=== PATIENT | female | born 1945 | race Caucasian/White ===

== ENCOUNTER 2017-03-17 10:29 | Emergency (ER) | payer MEDICARE, BC ==
--- NOTE | 2017-03-17 12:31 | ED PDOC ---
HPI: Trauma/Fall - HPI Time Seen by Provider: 03/17/17 11:08 Chief Complaint (Nursing): Lower Extremity Problem/Injury Chief Complaint (Provider): Fall, head injury History Per: Patient History/Exam Limitations: no limitations Onset/Duration Of Symptoms: Mins Injury Occurred (Timing): Just Before Arrival Associated Symptoms: Dizziness. denies: LOC Additional Complaint(s): 71yo female, past medical history of diabetes and hypertension, not currently on blood thinners, presents to ED for evaluation after she sustained a mechanical fall and had a head injury. Patient states she was walking on uneven pavement, fell and injured her forehead, left shoulder and knee. Patient states she was dizzy after the fall but not currently, also reports a headache. She denies any vomiting, loss of consciousness. Patient reports no difficulty with ambulation. No other complaints. PCP: Dr. George Past Medical History Reviewed: Historical Data, Nursing Documentation, Vital Signs Vital Signs: Last Vital Signs Temp 98.2 F 03/17/17 11:12 Pulse 56 L 03/17/17 11:12 Resp 20 03/17/17 11:12 BP 133/70 03/17/17 11:12 Pulse Ox 100 03/17/17 13:57 - Medical History PMH: Diabetes, HTN - Surgical History Surgical History: Hernia Repair - Family History Family History: States: No Known Family Hx - Allergies Allergies/Adverse Reactions: Allergies Allergy/AdvReac Type Severity Reaction Status Date / Time No Known Allergies Allergy Verified 03/17/17 10:48 Review of Systems ROS Statement: Except As Marked, All Systems Reviewed And Found Negative Gastrointestinal: Negative for: Nausea, Vomiting Musculoskeletal: Positive for: Shoulder Pain (left ), Leg Pain (left knee) Neurological: Positive for: Headache, Dizziness (initially after fall, not currently present) Physical Exam - Reviewed Nursing Documentation Reviewed: Yes Vital Signs Reviewed: Yes - Physical Exam Appears: Positive for: Non-toxic, No Acute Distress Head Exam: Positive for: NORMAL INSPECTION, NORMOCEPHALIC. Negative for: ATRAUMATIC (mild swelling noted to left forehead) Skin: Positive for: Warm, Dry Eye Exam: Positive for: EOMI, PERRL Neck: Positive for: Normal, Painless ROM, Supple. Negative for: Decreased ROM Cardiovascular/Chest: Positive for: Regular Rate, Rhythm. Negative for: Murmur Respiratory: Positive for: Normal Breath Sounds. Negative for: Respiratory Distress Gastrointestinal/Abdominal: Positive for: Soft. Negative for: Tenderness Back: Positive for: Other (paraspinal muscle tenderness). Negative for: Vertebral Tenderness Extremity: Positive for: Normal ROM, Swelling (swelling and ecchymosis noted above left patella). Negative for: Tenderness, Deformity Neurologic/Psych: Positive for: Alert, Oriented. Negative for: Motor/Sensory Deficits - ECG O2 Sat by Pulse Oximetry: 100 (RA) Pulse Ox Interpretation: Normal Medical Decision Making Medical Decision Making: Time: 1137 Impression: Head injury, shoulder injury, knee injury rule out intracranial bleed, fractures or dislocations Plan: -- CT head w/o contrast -- XR left shoulder -- XR left knee -- Tylenol 650 mg PO Reassess Time: 1304 CT Head Impression: Age related neuro neuro degenerative changes are identified without acute intracranial findings as discussed above. Follow up CT or MRI are available if clinically warranted. Time: 1355 Shoulder XR and Knee XR as read by provider shows no acute fractures or dislocations. Patient reports improvement in symptoms. Stable for discharge home. Scribe Attestation: Documented by Tabitha Heard acting as a scribe for Kumar Reyes MD. Provider Attestation: All medical record entries made by the Scribe were at my direction and personally dictated by me. I have reviewed the chart and agree that the record accurately reflects my personal performance of the history, physical exam, medical decision making, and the department course for this patient. I have also personally directed, reviewed, and agree with the discharge instructions and disposition. Disposition - Clinical Impression Clinical Impression: Head injury, Knee injury, Shoulder injury - Patient ED Disposition Is Patient to be Admitted: No Doctor Will See Patient In The: Office Counseled Patient/Family Regarding: Studies Performed, Diagnosis, Need For Followup - Disposition Referrals: Elías Iverson [Other] Disposition: Routine/Home Disposition Time: 13:56 Condition: GOOD Additional Instructions: Take motrin for pain. Wear knee brace for 1 week. Follow up with your PCP in 3 days. Instructions: Knee Sprain (ED), Head Injury (ED), Shoulder Sprain (ED) Print Language: PALAUAN
--- NOTE | 2017-03-17 13:02 | CT ---
PROCEDURE: CT HEAD WITHOUT CONTRAST. HISTORY: head injury COMPARISON: None available. TECHNIQUE: Axial computed tomography images were obtained through the head/brain without intravenous contrast. Radiation dose: Total exam DLP = 852.98 mGy-cm. This CT exam was performed using one or more of the following dose reduction techniques: Automated exposure control, adjustment of the mA and/or kV according to patient size, and/or use of iterative reconstruction technique. FINDINGS: HEMORRHAGE: No intracranial hemorrhage. BRAIN: Minimal diffuse expansion of the ventriculosulcal and cisternal spaces is appreciated with mild white matter lucency compatible with diffuse cerebral atrophy and chronic microangiopathy. No definite cortical edema is identified and there is no mass effect evident. No suspicious extra-axial collection identified in the posterior fossa contents appear diffusely unremarkable. VENTRICLES: Unremarkable. No hydrocephalus. CALVARIUM: Unremarkable. PARANASAL SINUSES: Unremarkable as visualized. No significant inflammatory changes. MASTOID AIR CELLS: Unremarkable as visualized. No inflammatory changes. OTHER FINDINGS: None. IMPRESSION: Age related neuro neuro degenerative changes are identified without acute intracranial findings as discussed above. Follow up CT or MRI are available if clinically warranted.
--- NOTE | 2017-03-17 13:54 | RAD ---
PROCEDURE: Left Knee Radiographs. HISTORY: Pain. COMPARISON: None. FINDINGS: BONES: No destructive bony lesion identified. No fracture. JOINTS: Normal. No osteoarthritis. JOINT EFFUSION: None. OTHER FINDINGS: Prominent prepatellar soft soft tissue edema is appreciated IMPRESSION: No acute fracture dislocation/ subluxation. Prominent prepatellar soft tissue edema is identified.
[2017-03-17 14:17] VITALS: BP 130/68; PULSE 60; RESP 18; TEMP 98; O2SAT 99
--- NOTE | 2017-03-17 14:24 | RAD ---
PROCEDURE: Radiographs of the Left Shoulder HISTORY: shoulder pain injury COMPARISON: No prior. FINDINGS: BONES: No destructive lesion. No fracture. JOINTS: Limited degenerative sclerosis appreciate the acromioclavicular the glenohumeral joints. No dislocation or subluxation identified. SOFT TISSUES: Normal. OTHER FINDINGS: Surgical clips in the left upper quadrant abdomen. IMPRESSION: Degenerative changes seen of left shoulder are [id number] basis. No acute fracture or dislocation.
== END 2017-03-17 14:17 | disposition home or self-care (01) ==
LOC: H.ER 10:29
DX: S09.90XA Unspecified injury of head, initial encounter (principal); M25.512 Pain in left shoulder; M25.562 Pain in left knee; W19.XXXA Unspecified fall, initial encounter; Y92.410 Unspecified street and highway as the place of occurrence of the external cause; E11.9 Type 2 diabetes mellitus without complications; I10 Essential (primary) hypertension